=== PATIENT | male | born 1960 | race Caucasian/White ===

== ENCOUNTER 2022-09-12 14:42 | Emergency (ER) | payer OTHER ==
[~2022-09-12] VITALS: Ht 167.6 cm; Wt 111.1 kg
--- NOTE | 2022-09-12 16:40 | NUR ---
[facility] AT BEDSIDE FOR ULTRASOUND
--- NOTE | 2022-09-12 17:08 | NUR ---
ACCUCHECK BS 160MG/DL
--- NOTE | 2022-09-12 17:48 | NUR ---
PAGED KRISTOPHER MCKENNA. HILDA YAN WILL CALL BACK.
[2022-09-12] MEDS ORDERED: CLON1PAT12 TD (18:33)
[2022-09-12] MEDS ORDERED: ROSU40TA23 PO (18:33)
[2022-09-12] MEDS ORDERED: CLON0.1T PO (18:33)
[2022-09-12] MEDS ORDERED: EMPA1TAB7 PO (18:33)
[2022-09-12] MEDS ORDERED: INSU100I26 SQ (18:33)
[2022-09-12] MEDS ORDERED: AMLO-213 PO (18:33)
[2022-09-12] MEDS ORDERED: GLIM4TAB37 PO (18:33)
[2022-09-12] MEDS ORDERED: OMEG-72 PO (18:33)
[2022-09-12] MEDS ORDERED: TRAM50TA2 PO (18:33)
[2022-09-12] MEDS ORDERED: EZET10TA16 PO (18:33)
[2022-09-12] MEDS ORDERED: MECL-173 PO (18:33)
[2022-09-12] MEDS ORDERED: ZOLP5TAB8 PO (18:33)
[2022-09-12] MEDS ORDERED: DULA1.5P SQ (18:33)
[2022-09-12] MEDS ORDERED: LOSA100T31 PO (18:33)
[2022-09-12] MEDS ORDERED: CARV12.52 PO (18:33)
[2022-09-12] MEDS ORDERED: OMEP20CA15 PO (18:33)
[2022-09-12] MEDS ORDERED: HYDR25TA4 PO (18:33)
[2022-09-12] MEDS ORDERED: ASPI-1420 PO (18:33)
--- NOTE | 2022-09-12 19:29 | NUR ---
COVID SWAB DONE AND SENT TO LAB
[2022-09-12 19:30] VITALS: BP 133/71
--- NOTE | 2022-09-12 19:50 | NUR ---
PT ACCEPTED TO [facility] BED 206-A UNDER THE CARE OF DR. MATOS. TRANSPORT IS BEING ARRANGED BY ACCEPTING FACILITY. NUMBER FOR REPORT IS [phone]
--- NOTE | 2022-09-12 20:05 | NUR ---
AMBULANCE ETA: 10 PM
--- NOTE | 2022-09-12 21:05 | NUR ---
LAC 20G PIV STARTED
--- NOTE | 2022-09-12 22:16 | NUR ---
[facility] AT BEDSIDE FOR TRANSPORT
--- NOTE | 2022-09-12 22:18 | NUR ---
REPORT GIVEN TO NELLY CESAR
--- NOTE | 2022-09-12 22:20 | NUR ---
PICKED UP BY TRANSPORT IN STABLE CONDITION
== END 2022-09-12 22:22 | disposition short-term general hospital (02) ==
LOC: ER 14:45
DX: M84.471A Pathological fracture, right ankle, initial encounter for fracture (principal); E11.9 Type 2 diabetes mellitus without complications; I10 Essential (primary) hypertension; Z20.822 Contact with and (suspected) exposure to COVID-19; Z79.85 Long-term (current) use of injectable non-insulin antidiabetic drugs; Z79.84 Long term (current) use of oral hypoglycemic drugs
CPT/HCPCS: 99285; 29515; 93971; 73700; 87426; 73610; 87081; 82962 ×2; C9803